=== PATIENT | female | born 1980 | race Caucasian/White ===

== ENCOUNTER 2021-06-04 04:52 | Emergency (ER) | payer MEDICAID ==
[~2021-06-04] VITALS: Ht 147.3 cm; Wt 122.5 kg
[~2021-06-04 04:52] MED LIST: ADVAIR HFA 230M12 GM INH; ALBUTEROL INH; CLARITIN10 M2; COLACE100 MG; FLEXERIL PO; LIPITOR10 MG PO; MECLIZINE HCL25 M1 PO; MUCINEX600 MG; NAPROSYN500 MG PO; PHENERGAN25 M2 RC; SEROQUEL200 MG; SYMBICORT160 MCG/4.; SYNTHROID25 MCG; TOPAMAX50 MG; VISTARIL 25 MG25 M1 PO; ZOFRAN ODT4 MG PO; ZYRTEC; ZYRTEC10 M2
[2021-06-04 04:58] VITALS: BP 144/67
[2021-06-04 05:27] LABS: URINE BILIRUBIN NEGATIVE (Negative); URINE BLOOD TRACE (Negative); URINE CLARITY CLEAR; URINE COLOR YELLOW; URINE GLUCOSE-RANDOM NEGATIVE (Negative); URINE KETONES NEGATIVE (Negative); URINE NITRITE-REFLEX NEGATIVE (Negative); URINE PROTEIN NEGATIVE (Negative); URINE SPECIFIC GRAVITY >= 1.030 (1.005-1.030); URINE UROBILINOGEN 0.2 E.U./dl (0.2-1.0)
[2021-06-04 05:28] LABS: URINE LEUKOCYTES-REFLEX 2+ (Negative)
[2021-06-04 05:34] LABS: AMP/METHAMP Negative (Negative); BARBITURATES Negative (Negative); BENZODIAZEPINES Negative (Negative); COCAINE Negative (Negative); METHADONE Negative (Negative); OPIATES Negative (Negative); PCP Negative (Negative); THC POSITIVE (Negative)
[2021-06-04 06:05] LABS: HEMATOCRIT 38.6 % (37.0-47.0); HEMOGLOBIN 12.6 gm/dL (12.0-15.0); MCH 26.3 pg (26.0-34.0); MCHC 32.6 g/dL (28.0-37.0); MCV 80.6 fL (80.0-100.0); MPV 8.8 fl. (7.2-11.1); RBC 4.79 mil/uL (4.20-5.00); RDW-CV 15.8 % (10.5-14.5); WBC 10.5 thou/uL (4.0-11.0)
[2021-06-04 06:22] LABS: CREATININE 1.1 mg/dL (0.6-1.3); POTASSIUM 3.3 mmol/L (3.5-5.1)
[2021-06-04 06:26] LABS: BACTERIA-REFLEX None Seen /HPF (None Seen); CASTS None Seen /LPF (None Seen); CRYSTALS None Seen /LPF (None Seen); SQUAMOUS 0-3 Few /LPF (0-3); URINE RBC 0-2 Rare /HPF (0-2); URINE WBC-REFLEX 0-5 Rare /HPF (0-5)
[2021-06-04 06:27] LABS: ALBUMIN 3.3 g/dL (3.4-5.0); TOTAL BILIRUBIN 0.3 mg/dL (<0.1-1.0); TOTAL PROTEIN 7.8 g/dL (6.4-8.2)
--- NOTE | 2021-06-05 16:31 | EKG ---
[place] [address] ELECTROCARDIOGRAM REPORT Name: ALLY LEOS Room: [facility]#: [id number] Admission: 06/04/21 Attend Phys: Discharge: 06/04/21 Date of : 82 Date of Service: 06/04/21 0500 Report #: [id number] THIS REPORT FOR: //name// [facility] ED Test Date: 2021-06-04 Test Time: 05:00:02 Pat Name: ALLY LEOS Department: Room: Gender: F Information Systems Consultant: : 1980 Requested By: Aditi Davis Order Number: [id number] MD: James Suárez Measurements Intervals [place] Rate: 97 P: 74 KS: 117 QRS: 19 QRSD: 101 T: 21 QT: 354 QTc: 450 Interpretive Statements Sinus rhythm Borderline short [place] interval Low voltage, precordial leads Minimal ST depression, diffuse leads No previous ECG available for comparison Electronically Signed On 06-05-2021 16:31:43 [employer] by James Suárez [email or web address] <ELECTRONICALLY SIGNED> By: James Suárez MD, FAC 06/05/21 1631 0500 0500 James Suárez MD, [facility] /EPI
== END 2021-06-04 06:48 | disposition home or self-care (01) ==
LOC: M.ERS 04:52
PROVIDERS: Personal Emergency Response Attendant
DX: F12.929 Cannabis use, unspecified with intoxication, unspecified (principal); F31.9 Bipolar disorder, unspecified; J45.909 Unspecified asthma, uncomplicated; Z79.899 Other long term (current) drug therapy